=== PATIENT | male | born 1955 ===

== ENCOUNTER 2018-11-29 08:27 | Emergency (ER) | payer OTHER ==
[~2018-11-29] VITALS: Ht 165.1 cm; Wt 136.1 kg
[2018-11-29] MEDS ORDERED: GABAPENTIN800 MG (08:40)
[2018-11-29] MEDS ORDERED: METFORMIN HCL500 MG (08:40)
[2018-11-29] MEDS ORDERED: LISINOPRIL10 MG (08:40)
[2018-11-29] MEDS ORDERED: SUCRALFATE1 GM (08:41)
[2018-11-29] MEDS ORDERED: PENTOXIFYLLINE400 MG (08:41)
[2018-11-29] MEDS ORDERED: PANTOPRAZOLE SO40 MG (08:41)
== END 2018-11-29 15:34 | disposition home or self-care (01) ==
LOC: ER 08:27
DX: R10.31 Right lower quadrant pain (principal)